=== PATIENT | male | born 1945 | race Caucasian/White ===

== ENCOUNTER → 2017-07-07 | Emergency (ER) | payer OTHER ==
[~2017-07-07] VITALS: Ht 170.2 cm; Wt 72.6 kg
[~2017-07-07] MED LIST: AMLODIPINE BESI25 GM; CIPRO500 MG PO; CLINDAMYCIN HC300 MG PO; INTESTINEX680 MG PO; LEVOTHYROXINE SO1 GM
== END | disposition home or self-care (01) ==
LOC: ER 11:25
DX: Z48.02 Encounter for removal of sutures (principal)

== ENCOUNTER 2019-08-11 09:19 | Outpatient (CLI) | payer OTHER | END 2019-08-11 09:27 | disposition home or self-care (01) | LOC: RAD 09:19 | DX: M12.88 Other specific arthropathies, not elsewhere classified, other specified site (principal) ==

== ENCOUNTER 2020-03-03 19:57 | Emergency (ER) | payer OTHER ==
[~2020-03-03] VITALS: Ht 170.2 cm; Wt 64.4 kg
[2020-03-03] MEDS ORDERED: SYNTHROID (21:10)
== END 2020-03-03 23:27 | disposition home or self-care (01) ==
LOC: ER 19:57
DX: S60.222A Contusion of left hand, initial encounter (principal); S00.83XA Contusion of other part of head, initial encounter; S80.01XA Contusion of right knee, initial encounter; W18.09XA Striking against other object with subsequent fall, initial encounter; Y93.89 Activity, other specified; Y92.413 State road as the place of occurrence of the external cause; Y99.8 Other external cause status

== ENCOUNTER 2021-10-04 12:21 | Outpatient (CLI) | payer OTHER ==
[~2021-10-04 12:21] MED LIST changes: +SYNTHROID
== END 2021-10-04 12:27 | disposition home or self-care (01) ==
LOC: RAD 12:21
PROVIDERS: ATTEND Internal Medicine Cardiovascular Disease
DX: M12.9 Arthropathy, unspecified (principal)

== ENCOUNTER 2022-10-27 11:41 | Outpatient (CLI) | payer OTHER | END 2022-10-27 11:46 | disposition home or self-care (01) | LOC: RAD 11:41 | PROVIDERS: ATTEND Internal Medicine Cardiovascular Disease | DX: M12.9 Arthropathy, unspecified (principal); M46.48 Discitis, unspecified, sacral and sacrococcygeal region ==

== ENCOUNTER 2023-10-01 23:16 | Emergency (ER) | payer OTHER ==
[~2023-10-01] VITALS: Ht 170.2 cm; Wt 68.0 kg
[2023-10-02] MEDS ORDERED: TETANUS & DIPHTHERIA TOX,ADULT 0.5 ML VIAL IM STA (00:49)
[2023-10-02] MEDS ORDERED: CLINDAMYCIN PHOSPHATE 150 MG/ML (600mg) IM STA (00:49)
[2023-10-02 01:36] LABS: HEMATOCRIT 41.9 % (39.0-48.0); HEMOGLOBIN 14.6 g/dL (13-16.00); MEAN CELL VOLUME 97.2 fL (80.0-100.00); MEAN CORPUSCULAR HEMOGLOBIN 33.9 pg (27.00-32.0); MEAN CORPUSCULAR HGB CONC 34.9 g/dl (32.0-36.0); PLATELET COUNT 225 K/uL (150-450); RED BLOOD COUNT 4.31 M/uL (4.00-6.00); RED CELL DISTRIBUTION WIDTH 13.5 % (11.5-14.5)
[2023-10-02 01:57] LABS: BILIRUBIN TOTAL 0.36 mg/dL (0.3-1.2); CREATININE SERUM 1.13 mg/dL (0.70-1.30); GFR 62.92; GLOBULINA 3.9 G/DL (2.4-3.5); POTASSIUM 4.26 mEq/L (3.5-5.1); TOTAL PROTEIN 7.9 gm/dL (6.4-8.2)
== END 2023-10-02 06:45 | disposition home or self-care (01) ==
LOC: ER → EDBD 23:25 → ER 23:25
DX: S01.01XA Laceration without foreign body of scalp, initial encounter (principal); W18.30XA Fall on same level, unspecified, initial encounter; Y93.89 Activity, other specified; Y92.89 Other specified places as the place of occurrence of the external cause; Y99.9 Unspecified external cause status; Z88.0 Allergy status to penicillin
CPT/HCPCS: 12002; 36415; 70450; 72125; 90471; 90714; 96372; 99284; J1670; J3490

== ENCOUNTER 2023-10-10 10:15 | Emergency (ER) | payer OTHER ==
[~2023-10-10] VITALS: Ht 167.6 cm; Wt 65.8 kg
[2023-10-10] MEDS ORDERED: AMLODIPINE-OLM1 EAC3 PO (10:44)
[2023-10-10] MEDS ORDERED: TAMS0.4C PO (10:45)
[2023-10-10] MEDS ORDERED: LEVO-T75 MCG PO (10:45)
[2023-10-10] MEDS ORDERED: SYNTHROID75 MCG PO (10:47)
== END 2023-10-10 11:58 | disposition home or self-care (01) ==
LOC: ER 10:15
DX: Z48.02 Encounter for removal of sutures (principal); Z88.0 Allergy status to penicillin

== ENCOUNTER 2024-11-15 20:52 | Emergency (ER) | payer OTHER ==
[~2024-11-15] VITALS: Ht 170.2 cm; Wt 77.1 kg
[~2024-11-15 20:52] MED LIST changes: +AMLODIPINE-OLM1 EAC3 PO; +AZOR 10-20 MG1 EACH PO; +LEVO-T75 MCG PO; +SYNTHROID75 MCG PO; +TAMS0.4C PO
[2024-11-15] MEDS ORDERED: FAMOTIDINE/PF 20 MG/2 ML VIAL ONE (21:41)
[2024-11-15] MEDS ORDERED: 0.9 % SODIUM CHLORIDE 1,000 ML IV ONE (21:45)
[2024-11-15] MEDS ORDERED: FAMOtidine 10 MG/ML (4ML VIAL) IV ONE (21:45)
[2024-11-15] MEDS ORDERED: CIPROFLOXACIN IN 5 % DEXTROSE 400 MG/200 ML PIGGYBAG IV ONE ×2 (21:51→22:00)
[2024-11-15 21:57] LABS: BASO % 0.7 % (0.1-1.2); EOS # 0.41 (0.04-0.54); EOS % 4.9 % (0.7-7.0); HEMATOCRIT 41.6 % (40.1-51.0); HEMOGLOBIN 14.3 g/dL (13.7-17.5); LYMPH # 1.52 (1.18-3.74); LYMPH % 18.3 % (19.3-53.1); MEAN CORPUSCULAR HEMOGLOBIN 32.4 pg (25.6-32.2); MONO # 0.54 (0.24-0.82); MONO % 6.5 % (4.7-12.5); NEUT # 5.75 (1.56-6.13); NEUT % 69.4 % (34.0-71.1); PLATELET COUNT 248 K/uL (163-369); RED BLOOD COUNT 4.42 M/uL (4.63-6.08); RED CELL DISTRIBUTION WIDTH 12.6 % (11.6-14.4)
[2024-11-15 22:19] LABS: PARTIAL THROMBOPLASTIN TIME 24.8 SECONDS (22.0-34.0); PROTHROMBIN TIME 10.9 SECONDS (9.0-11.5)
[2024-11-15 22:37] LABS: BILIRUBIN TOTAL 0.6 mg/dL (0.3-1.2); CALCIUM 8.5 mg/dL (8.5-10.1); CREATININE SERUM 1.13 mg/dL (0.70-1.30); GFR 62.76; GLOBULINA 3.9 G/DL (2.4-3.5); POTASSIUM 3.81 mEq/L (3.5-5.1); TOTAL PROTEIN 7.9 gm/dL (6.4-8.2)
[2024-11-16] MEDS ORDERED: PEPCID AC20 MG PO (00:14)
[2024-11-16] MEDS ORDERED: CIPRO500 MG PO (00:14)
== END 2024-11-16 00:43 | disposition home or self-care (01) ==
LOC: ER 20:52
PROVIDERS: General Practice
DX: S00.81XA Abrasion of other part of head, initial encounter (principal); W18.39XA Other fall on same level, initial encounter; Y93.89 Activity, other specified; Y92.89 Other specified places as the place of occurrence of the external cause; Y99.9 Unspecified external cause status; I10 Essential (primary) hypertension; E03.9 Hypothyroidism, unspecified; Z88.0 Allergy status to penicillin
CPT/HCPCS: 36415; 70450; 70480; 71045; 72125; 73521; 96365; 96366; 99284; J0744; J3490